=== PATIENT | female | born 1990 | race African-American/Black ===

== ENCOUNTER 2016-12-05 03:44 | Outpatient (CLI) | payer OTHER ==
[~2016-12-05] VITALS: Ht 170.2 cm; Wt 140.0 kg
[~2016-12-05 03:44] MED LIST: ACET325T33 PO; MAG355OR14 PO
[2016-12-05 04:14] VITALS: BMI 40.6
[2016-12-05] MEDS ORDERED: FERR325C PO (04:16)
[2016-12-05] MEDS ORDERED: PREN-93 PO (04:16)
[2016-12-05 04:20] VITALS: Ht 170.2 cm; Wt 140.0 kg
--- NOTE | 2016-12-05 20:53 | TRIAGE ---
OB Triage Datetime Report Generated by CPN: 12/05/2016 20:53 Datetime: 12/05/2016 04:21 Heart Rate Monitor Mode: External US Datetime: 12/05/2016 04:06 Stage of : OB Triage Assessment Type: Triage Maternal Assessment Blurred Vision: No Respiratory Effort: Unlabored; Regular Rhythm; Equal Expansion Facial Edema: None Fall Risk Assessment History of Falling: (0) No Secondary Diagnosis: (0) No Ambulatory Aid: (0) Bedrest/Nurse Assist IV Therapy: (0) No Gait: (0) Normal/Bedrest/Immobile Mental Status: (0) Oriented to Own Ability Fall Score: 0 Fall Risk Score Definition: No Risk: No action required Datetime: 12/05/2016 04:04 Time of Arrival: 12/05/2016 03:40 EGA: 39.2 Arrived By: Stretcher; Ambulance Arrived From: Home Chief Complaint: UC'S SINCE 129 Movement: Present Contractions: Regular Contractions: Q2MIN Rupture of Membranes: Unsure Vaginal Bleeding: None Vaginal Discharge: Denies Recent Sexual Intercouse: Denies Abdominal Trauma: Not Applicable Patient Complaints: Contractions Time Provider Notified: 12/05/2016 04:26 Provider Notified: TANNA Initial Plan: EFM, SVE,CALL OB Heart Rate Monitor Mode: External US Comments: CONTINUOUS MONITORING WITH LOSS OF CONTACT D/T CONSTANT MATERNAL MOVEMENT, SITTING UP AN D MORBID OBESITY Datetime: 12/05/2016 04:01 Stage of : OB Triage Vaginal Exam Dilatation (cms): 1.0 Effacement (%): 40 Station: -3 Exam By: CRESENCIO ELLSWORTH Membrane Status: Intact (Annotations: NO FLUID, SECRETIONS, DISCHARGE SEE AROUND OR INSIDE VAGINA. NO FLUID ON STERILE GLOVES POST EXAM) Vaginal Bleeding: None Cervix, Consistency: Moderate Cervix, Position: Posterior
--- NOTE | 2017-01-13 20:14 | QN ---
Documentation Comment diagnosis: rule out labor BRIGETTE CISSE MD Jan 13, 2017 20:14
== END 2016-12-05 04:27 | disposition home or self-care (01) ==
LOC: OBT 03:44 → L-D 03:45 → OBT 04:27
PROVIDERS: ATTEND Obstetrics & Gynecology
DX: O62.9 Abnormality of forces of labor, unspecified (principal); Z3A.39 39 weeks gestation of pregnancy
CPT/HCPCS: G0463

== ENCOUNTER 2017-03-04 13:54 | Emergency (ER) | payer OTHER ==
[~2017-03-04] VITALS: Wt 90.0 kg
[~2017-03-04 13:54] MED LIST changes: +FERR325C PO; +PREN-93 PO
--- NOTE | 2017-03-04 13:59 | QN ---
Documentation Comment Patient was seen immediately upon arrival the patient arrived by ambulance. The patient will be sent to triage for further vital signs will be seen by another provider. Medical screening exam was initiated. ADIN PAYNE MD Mar 04, 2017 13:59
[2017-03-04] MEDS ORDERED: ASPIRIN 325 MG TAB PO STA (14:31)
[2017-03-04] MEDS ORDERED: LIDOCAINE/MYLANTA 40 ML BTL PO STA (14:31)
[2017-03-04 15:04] LABS: EOSINOPHILS # 0.1 10^3/ul (0.0-0.5); EOSINOPHILS % 2.4 % (0.0-7.0); HEMATOCRIT 32.9 % (37.0-47.0); HEMOGLOBIN 11.1 g/dl (12.0-16.0); LYMPHOCYTES # 1.5 10^3/ul (0.8-2.9); LYMPHOCYTES % 29.5 % (15.0-51.0); MEAN CORPUSCULAR HEMOGLOBIN 28.2 pg (29.0-33.0); MEAN CORPUSCULAR HGB CONC 33.7 g/dl (32.0-37.0); MEAN CORPUSCULAR VOLUME 83.7 fl (82.0-101.0); MEAN PLATELET VOLUME 11.4 fl (7.4-10.4); MONOCYTE # 0.6 10^3/ul (0.3-0.9); NEUTROPHILS % 55.7 % (39.0-77.0); PLATELET COUNT 294 10^3/UL (140-415); RED BLOOD COUNT 3.93 10^6/ul (4.20-5.40); RED CELL DISTRIBUTION WIDTH 15.8 % (11.5-14.5); WHITE BLOOD COUNT 4.9 10^3/ul (4.8-10.8)
[2017-03-04 15:18] LABS: ANION GAP 12 (8-16); BLOOD UREA NITROGEN 8 mg/dl (7-20); CARBON DIOXIDE 26 mmol/L (21-31); CHLORIDE 107 mmol/L (97-110); CREATININE 0.57 mg/dl (0.44-1.00); GLUCOSE 91 mg/dl (70-220); POTASSIUM 3.4 mmol/L (3.5-5.1); SODIUM 142 mmol/L (135-144)
[2017-03-04 15:23] LABS: INR 0.96; PROTIME 12.8 Sec (12.2-14.2)
--- NOTE | 2017-03-04 15:23 | RADRPT ---
PROCEDURE: Chest x-ray CLINICAL INDICATION: Chest pain TECHNIQUE: Chest single view COMPARISON: None FINDINGS: There is mildly enlarged in size. The pulmonary vessels are normal in caliber. The lungs are clear . The costophrenic angles are sharp. The visualized bony thorax is unremarkable. IMPRESSION: No acute cardiopulmonary disease. Mild cardiomegaly RPTAT: HH .Angelo Kruger MD, Date Time Electronically viewed and signed by .Angelo Kruger MD, MD on 03/04/2017 15:22 .W/
[2017-03-04 15:24] LABS: PARTIAL THROMBOPLASTIN TIME 29.2 Sec (25.0-35.0)
[2017-03-04 15:32] LABS: TROPONIN-I < 0.012 ng/ml (0.00-0.12)
[2017-03-04] MEDS ORDERED: OMEP20CA16 PO (16:09)
--- NOTE | 2017-03-04 23:19 | ERD ---
ER Documentation Chief Complaint Date/Time DATE: 03/04/17 TIME: 23:15 Chief Complaint CHEST PAIN FOR SEVERAL DAYS, BIB AMBULANCE HPI This patient is a 26-year-old female presenting to the emergency department with complaints of chest pain ongoing for the past 2 days. Symptoms are worse today. She reports a burning sensation in her chest. There is radiation to her left neck and her left back. Symptoms are intermittent and they last for approximately 5 minutes when they occur. She has never had these symptoms in the past. She denies worsening of symptoms on exertion. She did mention that they awoke her from sleep last night though. The patient denies fevers, chills , nausea, vomiting, diarrhea, abdominal pain, or other symptoms. ROS All systems reviewed and are negative except as per history of present illness. Medications Home Meds Active Scripts Omeprazole* (Omeprazole*) 20 Mg Capsule.dr, 20 MG PO DAILY, #30 Prov:LISA MERAZ PA-C 03/04/17 Mag Hydrox/Al Hydrox/Simeth (Maalox Advanced Suspension) 355 Ml Oral.susp, 2 TSP PO TID for PAIN, #24 OZ Prov:BONNIE FERNANDO MD 06/07/16 Acetaminophen* (Tylenol*) 325 Mg Tablet, 2 TAB PO Q8 Y for PAIN, #30 TAB Prov:BONNIE FERNANDO MD 06/07/16 Reported Medications Ferrous Sulfate (Iron) 325 Mg Capsule.er, 325 MG PO, CAP 12/05/16 Vit No.124/Iron/FA ( Vitamin Tablet) 1 Each Tablet, 1 EACH PO, TAB 12/05/16 Allergies Allergies: Coded Allergies: ibuprofen (Unverified Allergy, Unknown, 12/05/16) PMhx/Soc History of Surgery: No Anesthesia Reaction: No Hx Neurological Disorder: No Hx Respiratory Disorders: No Hx Cardiac Disorders: No Hx Psychiatric Problems: No Hx Miscellaneous Medical Probl: No Hx Alcohol Use: No Hx Substance Use: No Hx Tobacco Use: No Smoking Status: Never smoker Physical Exam Vitals Vital Signs Date Time Temp Pulse Resp B/P Pulse Ox O2 Delivery O2 Flow Rate FiO2 03/04/17 16:16 Nasal Cannula 03/04/17 14:04 97.0 79 17 147/81 98 Physical Exam Const: Morbidly obese female in no acute distress. Head: Atraumatic Eyes: Normal Conjunctiva ENT: Normal External Ears, Nose and Mouth. Neck: Full range of motion..~ No meningismus. Resp: Clear to auscultation bilaterally Cardio: Regular rate and rhythm, no murmurs. There is mild left-sided chest wall tenderness on palpation. Abd: Obese, soft, non tender, non distended. Normal bowel sounds Skin: No petechiae or rashes Back: No midline or flank tenderness Ext: No cyanosis, or edema Neur: Awake and alert Psych: Normal Mood and Affect Result Diagram: 03/04/17 1411 03/04/17 1411 Results 24 hrs Laboratory Tests Test 03/04/17 14:11 White Blood Count 4.910^3/ul Red Blood Count 3.9310^6/ul Hemoglobin 11.1g/dl Hematocrit 32.9% Mean Corpuscular Volume 83.7fl Mean Corpuscular Hemoglobin 28.2pg Mean Corpuscular Hemoglobin Concent 33.7g/dl Red Cell Distribution Width 15.8% Platelet Count 39557^3/UL Mean Platelet Volume 11.4fl Neutrophils % 55.7% Lymphocytes % 29.5% Monocytes % 12.0% Eosinophils % 2.4% Basophils % 0.0% Nucleated Red Blood Cells % 0.0/100WBC Neutrophils # (Manual) 310^3/ul Lymphocytes # 1.510^3/ul Monocytes # 0.610^3/ul Eosinophils # 0.110^3/ul Basophils # 0.010^3/ul Nucleated Red Blood Cells # 0.010^3/ul Prothrombin Time 12.8Sec Prothrombin Time Ratio 1.0 INR International Normalized Ratio 0.96 Activated Partial Thromboplast Time 29.2Sec Sodium Level 142mmol/L Potassium Level 3.4mmol/L Chloride Level 107mmol/L Carbon Dioxide Level 26mmol/L Anion Gap 12 Blood Urea Nitrogen 8mg/dl Creatinine 0.57mg/dl Glucose Level 91mg/dl Calcium Level 9.0mg/dl Troponin I < 0.012ng/ml Current Medications Medications (Trade) Dose Ordered Sig/Savage Route PRN Reason Start Time Stop Time Status Last Admin Dose Admin Aspirin (Aspirin) 325 mg ONCE STAT PO 03/04/17 14:31 03/04/17 14:33 DC 03/04/17 14:41 Miscellaneous Medication (Gi Cocktail (2)) 40 ml ONCE STAT PO 03/04/17 14:31 03/04/17 14:33 DC 03/04/17 14:41 Procedures/MDM EMERGENCY DEPARTMENT COURSE / MEDICAL DECISION MAKING: This is a 26-year-old female who comes to the emergency room secondary to complaints of chest pain. The patient was given p.o. aspirin and p.o. GI cocktail in the department. On re -evaluation, the patient was feeling improved. Lab results reviewed. CBC: Slightly anemic at 11.1, which the patient can correct as an outpatient with [id number] ferrous sulfate. Chemistry: Slightly hypokalemic at 3.4, but does not require any supplementation at this time. Troponin: within normal limits. EKG: Interpreted by emergency department physician, Dr. Jase Stanford Rate/Rhythm: Normal sinus rhythm with a rate of 65 bpm. QRS, ST, T-waves: No changes consistent w/ acute ischemia Impression: No evidence of ischemia or arrhythmia Radiology: PROCEDURE: Chest x-ray CLINICAL INDICATION: Chest pain TECHNIQUE: Chest single view COMPARISON: None FINDINGS: There is mildly enlarged in size. The pulmonary vessels are normal in caliber. The lungs are clear. The costophrenic angles are sharp. The visualized bony thorax is unremarkable. IMPRESSION: No acute cardiopulmonary disease. Mild cardiomegaly RPTAT: HH .Angelo Kruger MD, MD Date Time Electronically viewed and signed by .Angelo Kruger MD, on 03/04/2017 15:22 The primary diagnosis is chest pain of unclear etiology. I have low suspicion for aortic dissection, acute coronary syndrome, pneumothorax, pulmonary embolism, sepsis, or other emergent conditions at this time. Discharge: I have discussed the lab results and diagnostic findings with the patient and answered any questions or concerns. The patient was discharged with a prescription for omeprazole. The patient was advised to followup with their PMD in 1-2 days and to return to the Emergency Department if there are any new or worsening symptoms. The patient understood and agreed with the diagnosis, treatment and plan. The patient is stable for discharge at this time. Departure Diagnosis: Primary Impression: Chest pain Condition: Fair Patient Instructions: Chest Pain, Uncertain Cause Additional Instructions: Follow up with your PCP within the next 1-3 days for a repeat evaluation. If you require a referral to a specialist, your Primary Care Provider may be able to provide this for you. In most patient cases, a referral is not required. If you have further questions regarding this matter, please ask your Primary Care Provider. Return the the emergency department immediately if symptoms worsen or change. If you have any questions regarding medications, ask your pharmacist or us before you leave. If any adverse reactions, occur while taking your medications, discontinue the treatment and return to the emergency department immediately. If any new or worsening symptoms, uncontrolled fevers, or other unexplained symptoms occur, return to the emergency department immediately. Take your medications as directed, and complete the entire course of treatment. LISA MERAZ PA-C Mar 04, 2017 23:19
== END 2017-03-04 16:17 | disposition home or self-care (01) ==
LOC: FTE 13:54
DX: R07.9 Chest pain, unspecified (principal)
CPT/HCPCS: 36415; 71010; 80048; 84484; 85025; 85610; 85730; Z7502; Z7610; 93005

== ENCOUNTER 2018-08-02 15:25 | Emergency (ER) | payer OTHER ==
[~2018-08-02] VITALS: Wt 93.8 kg
[~2018-08-02 15:25] MED LIST changes: +OMEP20CA16 PO
[2018-08-02] MEDS ORDERED: ALBUTEROL 0.083% (NEB) 2.5 MG/3 ML AMP HHN STA (17:09)
[2018-08-02] MEDS ORDERED: IPRATROPIUM (NEB) 0.5 MG/2.5 ML AMP HHN ONE (17:30)
--- NOTE | 2018-08-02 17:45 | ERD ---
ER Documentation Chief Complaint Chief Complaint bib self, cc: sob x 3 days, hx of asthma, seen at [facility] HPI 28-year-old female, with history of asthma, presents to the emergency department, complaining of persistent cough and chest congestion during the last 3 days. The patient was seen yesterday at [facility] where she got a prescription for steroids, antibiotics and inhalers. She denies fevers, no chills. Started that she has not been able to get the medication and is requesting a breathing treatment. ROS All systems reviewed and are negative except as per history of present illness. Medications Home Meds Active Scripts Albuterol Sulfate* (Proair HFA*) 8.5 Gm Hfa.aer.ad, 2 PUFF INH Q4H PRN for WHEEZING AND SOB, #1 INHALER Prov:ENOC ARMANDO MD 08/02/18 Omeprazole* (Omeprazole*) 20 Mg Capsule.dr, 20 MG PO DAILY, #30 Prov:LISA MERAZ PA-C 03/04/17 Mag Hydrox/Al Hydrox/Simeth (Maalox Advanced Suspension) 355 Ml Oral.susp, 2 TSP PO TID for PAIN, #24 OZ Prov:BONNIE FERNANDO MD 06/07/16 Acetaminophen* (Tylenol*) 325 Mg Tablet, 2 TAB PO Q8 PRN for PAIN, #30 TAB Prov:BONNIE FERNANDO MD 06/07/16 Reported Medications Ferrous Sulfate (Iron) 325 Mg Capsule.er, 325 MG PO, CAP 12/05/16 Vit No.124/Iron/FA ( Vitamin Tablet) 1 Each Tablet, 1 EACH PO, TAB 12/05/16 Allergies Allergies: Coded Allergies: ibuprofen (Unverified Allergy, Unknown, 12/05/16) PMhx/Soc History of Surgery: No Anesthesia Reaction: No Hx Neurological Disorder: No Hx Respiratory Disorders: Yes (Bronchitis, Asthma) Hx Cardiac Disorders: No Hx Psychiatric Problems: No Hx Miscellaneous Medical Probl: No Hx Alcohol Use: No Hx Substance Use: No Hx Tobacco Use: No Smoking Status: Never smoker FmHx Family History: No diabetes, No coronary disease Physical Exam Vitals Physical Exam Const: No acute distress Head: Atraumatic Eyes: Normal Conjunctiva ENT: Normal External Ears, Nose and Mouth. Neck: Full range of motion. No meningismus. Resp: Mild bilateral rhonchi without wheezing to auscultation bilaterally Cardio: Regular rate and rhythm, no murmurs Abd: Soft, non tender, non distended. Normal bowel sounds Skin: No petechiae or rashes Back: No midline or flank tenderness Ext: No cyanosis, or edema Neur: Awake and alert Psych: Normal Mood and Affect Results 24 hrs Current Medications Medications Dose Sig/Savage Start Time Status Last (Trade) Ordered Route PRN Stop Time Admin Dose Reason Admin Albuterol 5 mg ONCE STAT 08/02/18 DC 08/02/18 (Proventil HHN 17:09 18:01 0.083% (Neb)) 08/02/18 17:12 Ipratropium 0.5 mg ONCE ONCE 08/02/18 DC 08/02/18 [place] [facility] 17:30 18:01 (Atrovent 08/02/18 17:31 0.02% (Neb)) EKG read by me: Rate/Rhythm: Sinus bradycardia at a rate of 49 Intervals: Normal No acute ST changes. No T wave inversion Impression: No evidence of acute ischemia or arrhythmia Procedures/MDM Differential diagnosis include but not limited to: Respiratory infection bacterial/viral/fungal. Asthma/COPD, pneumonitis, allergies, GERD. Less likely foreign body aspiration, cardiac related, aspiration pneumonia, malignancy. Physical examination and clinical presentation consistent most likely with upper respiratory infection and asthma patient During the ED course the patient remained stable, received a nebulized treatment in the ED presenting overall improvement of the symptoms, no new compl aints. Clinical impression discussed with the patient who agrees with management. The patient is stable to be treated outpatient and will be discharged home. Some side effects of prescribed medications (headache, rash, nausea, vomiting, diarrhea, drowsiness, habituation, bleeding, hypertension, interactions with other medications) were reviewed. The patient was instructed to follow up with the primary care provider in the next 48h. If symptoms persist, worsen or new symptoms develop, then patient should return to the ED immediately. Disclaimer: Inadvertent spelling and grammatical errors are likely due to EHR/dictation software use and do not reflect on the overall quality of patient care. Also, please note that the electronic time recorded on this note does not necessarily reflect the actual time of the patient encounter. Departure Diagnosis: Primary Impression: Cough Condition: Stable Additional Instructions: Thank you very much for allowing us to participate in your care. Your health and safety is our top priority at [facility]. Call your primary care doctor TOMORROW for an appointment during the next 2-4 days and bring all the information and medications prescribed. Have prescriptions filled and follow precisely the directions on the label. If the symptoms get worse and your provider is unavailable, return to the Emergency Department immediately. ENOC ARMANDO MD Aug 02, 2018 17:45
[2018-08-02] MEDS ORDERED: ALBU8.5H8 INH (18:27)
[2018-08-02 18:47] VITALS: BP 130/84; PULSE 74; RESP 18
== END 2018-08-02 18:47 | disposition home or self-care (01) ==
LOC: FTE 15:25
DX: R05 Cough (principal); J45.909 Unspecified asthma, uncomplicated
CPT/HCPCS: 71046; 93005; 94664; Z7502; Z7610

== ENCOUNTER 2018-08-31 10:25 | Emergency (ER) | payer OTHER ==
[~2018-08-31] VITALS: Ht 177.8 cm; Wt 94.8 kg
[~2018-08-31 10:25] MED LIST changes: +ALBU8.5H8 INH
[2018-08-31 10:27] VITALS: BP 161/104; PULSE 73; RESP 19; Ht 177.8 cm; Wt 94.8 kg
[2018-08-31] MEDS ORDERED: FLUCONAZOLE 150 MG TAB PO ONE (11:30)
--- NOTE | 2018-08-31 18:26 | ERD ---
ER Documentation Chief Complaint Chief Complaint HEADACHE AND ABDOMINAL PAIN- HX OF MIGRAINE AND GASTRITIS HPI 28-year-old female patient with a past medical history of sickle cell anemia, asthma presents to the ED complaining of a rash on her scalp, face that has been going for years. States that she also obtain yeast infection. States that she feels like it is from taking ranitidine. Denies any fever, chills, nausea, vomiting, abdominal pain, chest pain, shortness of breath, body aches. Patient reports that she recently obtained blood work, has a follow-up appointment with a tram operator on September 2018. ROS All systems reviewed and are negative except as per history of present illness. Medications Home Meds Active Scripts Guaifenesin/Pseudoephedrne HCl (Mucinex D ER 1,200-120 mg Tab) 1 Each Tab.er.12h, 1 EACH PO QPM PRN for congestion, #7 TAB Prov:BRIONNA LIU DO 09/04/18 Prednisone* (Prednisone*) 20 Mg Tab, 60 MG PO DAILY for 4 Days, TAB Prov:BRIONNA LIU DO 09/04/18 Albuterol Sulfate* (Proair HFA*) 8.5 Gm Hfa.aer.ad, 2 PUFF INH Q4, #1 INHALER Prov:BRIONNA LIU DO 09/04/18 Azithromycin* (Zithromax*) 250 Mg Tablet, 250 MG PO .ZPACK DIRECTED, #6 TAB TAKE 500 MG (2 TABS) THE FIRST DAY THEN 250 MG (1 TAB) DAYS 2-5 Prov:BRIONNA LIU DO 09/04/18 Nystatin-Triamcinolone* (Nystatin-Triamcinolone* Cream) 15 Gm Cream.gm., 1 APPLIC TOP BID for 7 Days, #1 TUB Prov:ENOC ARMANDO MD 09/02/18 Triamcinolone Acetonide (Triamcinolone Acetonide) 0.5% - 15 Gm Oint..gm., 1 APPLIC TOP BID for 10 Days, #2 TUB Prov:ENOC ARMANDO MD 09/02/18 Prednisone* (Prednisone*) 20 Mg Tab, 60 MG PO DAILY for 5 Days, TAB Prov:ENOC ARMANDO MD 09/02/18 Albuterol Sulfate* (Proair HFA*) 8.5 Gm Hfa.aer.ad, 2 PUFF INH Q4H PRN for WHEEZING AND SOB, #1 INHALER Prov:ENOC ARMANDO MD 08/02/18 Reported Medications Ranitidine Hcl* (Ranitidine Hcl*) 150 Mg Tablet, 150 MG PO Q12, #60 TAB 09/04/18 Acetaminophen* (Tylophen*) 500 Mg Capsule, 500 MG PO Q6H PRN for PAIN LEVEL 4-6, TAB 09/04/18 Ergocalciferol (Vitamin D2) (VITAMIN D2) 50,000 Unit Capsule, 16397 UNIT PO weekly, CAP 09/04/18 Clindamycin Phosphate (Clindagel) 40 Ml Gel..ml., 40 ML TP BID 09/04/18 Beclomethasone Dipropionate (Qvar Redihaler (40 MCG)) 10.6 Gm Hfa.aeroba, 10.6 GM IH BID, INH 09/04/18 Loratadine* (Claritin*) 10 Mg Capsule, 10 MG PO DAILY, CAP 09/04/18 Discontinued Reported Medications Ferrous Sulfate (Iron) 325 Mg Capsule.er, 325 MG PO, CAP 12/05/16 Vit No.124/Iron/FA ( Vitamin Tablet) 1 Each Tablet, 1 EACH PO, TAB 12/05/16 Discontinued Scripts Fluconazole* (Diflucan*) 150 Mg Tablet, 150 MG PO ONCE, #1 TAB Prov:ENOC ARMANDO MD 09/02/18 Hydrocodone/Acetaminophen ([place] 5-325 Tablet) 1 Each Tablet, 1 TAB PO QHS PRN for PAIN, #7 TAB Prov:ENOC ARMANDO MD 09/02/18 Omeprazole* (Omeprazole*) 20 Mg Capsule.dr, 20 MG PO DAILY, #30 Prov:LISA MERAZ PA-C 03/04/17 Mag Hydrox/Al Hydrox/Simeth (Maalox Advanced Suspension) 355 Ml Oral.susp, 2 TSP PO TID for PAIN, #24 OZ Prov:BONNIE FERNANDO MD 06/07/16 Acetaminophen* (Tylenol*) 325 Mg Tablet, 2 TAB PO Q8 PRN for PAIN, #30 TAB Prov:BONNIE FERNANDO MD 06/07/16 Allergies Allergies: Coded Allergies: amoxicillin (Verified Allergy, Unknown, 09/04/18) ibuprofen (Unverified Allergy, Unknown, 09/04/18) PMhx/Soc Medical and Surgical Hx: pt denies Medical Hx, pt denies Surgical Hx History of Surgery: No Anesthesia Reaction: No Hx Neurological Disorder: No Hx Respiratory Disorders: Yes (Bronchitis, Asthma) Hx Cardiac Disorders: No Hx Psychiatric Problems: No Hx Miscellaneous Medical Probl: No Hx Alcohol Use: No Hx Substance Use: No Hx Tobacco Use: No FmHx Family History: No diabetes, No coronary disease Physical Exam Vitals Vital Signs Date Temp Pulse Resp B/P (MAP) Pulse Ox O2 O2 Flow FiO2 Time Delivery Rate 08/31/18 98.8 73 19 161/104 100 10:27 (123) Physical Exam Const: Bro-exd-sbivrneix, well-nourished. In no acute distress. Head: Atraumatic, normocephalic. Vitiligo-like lesion, 6 x 3 cm in size of the left scalp. Eyes: Normal Conjunctiva without injection. No purulent discharge. PERRL. EOMI ENT: Normal external ear. Ear canal without erythema. Tympanic membrane pearly martines without effusion or bulging. Nasal canal clear with normal turbinates. Moist oropharynx without tonsillar exudates. Non-erythematous pharynx. Uvula midline. No drooling. No trismus. Neck: Full range of motion. No meningismus. No cervical lymphadenopathy. Resp: Clear to auscultation bilaterally. No wheezing, rhonchi, rales, or crackles. No accessory muscle use. No retractions. Cardio: Regular rate and rhythm. No murmurs, rubs or gallops. Abd: Soft, non tender, non distended. Normal bowel sounds. No palpable masses. No rebound tenderness. No guarding. Skin: No petechiae or rashes Back: No midline tenderness. No CVA tenderness. Ext: No cyanosis, or edema. Neur: Awake and alert. Psych: Normal Mood and Affect Results 24 hrs Current Medications Medications Dose Sig/Savage Start Time Status Last (Trade) Ordered Route PRN Stop Time Admin Dose Reason Admin Fluconazole 150 mg ONCE ONCE 08/31/18 DC 08/31/18 (Diflucan) PO 11:30 11:35 08/31/18 11:31 Procedures/MDM 28-year-old female patient with no significant past medical history presents to ED complaining of a rash on her head. Patient is afebrile and nontoxic- appearing. Patient reports that she feels like she has a yeast infection, with just like the pill, to be treated. Deferred pelvic exam. Patient vitiligo-like rash should be biopsied. Patient should follow-up with her tram operator. Patient should also obtain care for her sickle cell. Low suspicion for sickle cell crisis at this time. Low suspicion for acute myocardial infarction, pneumothorax, pericarditis, myocarditis, endocarditis, pneumonia, cardiac tamponade, pulmonary embolism, pleural effusion, AAA, aortic dissection, Boerhaave's syndrome, cardiac dysrhythmias,meningitis, intracranial bleed, seizure, stroke, TIA or other emergent conditions. Low suspicion for anaphylaxis, PID, ovarian torsion, scabies, SJS/TEN, TSS, Lyme's Disease, syphil is, RMSF, shingles, disseminated gonorrhea chlamydia, DIC, TTP, ITP, erythema multiforme, sepsis, cellulitis, necrotizing fasciitis, gangrene, meningococcemia, allergic contact dermatitis, urticaria, eczema, tinea infection, or other emergent conditions. Discussed with Dr. Kaufman who agreed with the management and discharge plan. Diagnosis: Yeast Infection Follow up with primary care physician in 1-2 days. Instructed patient to return to the ED sooner for any worsening symptoms. Patient's questions were answered. Patient is hemodynamically stable. Patient understood and agreed with discharge plan. Patient discharged stable. Disclaimer: Inadvertent spelling and grammatical errors are likely due to EHR/dictation software use and do not reflect on the overall quality of patient care. Also, please note that the electronic time recorded on this note does not necessarily reflect the actual time of the patient encounter. Departure Diagnosis: Primary Impression: Yeast infection Condition: Stable Patient Instructions: Self-Care for Skin Rashes, Vaginal Infection: Yeast (Candidiasis) Referrals: COMMUNITY CLINICS YOU HAVE RECEIVED A MEDICAL SCREENING EXAM AND THE RESULTS INDICATE THAT YOU DO NOT HAVE A CONDITION THAT REQUIRES URGENT TREATMENT IN THE EMERGENCY DEPARTMENT. FURTHER EVALUATION AND TREATMENT OF YOUR CONDITION CAN WAIT UNTIL YOU ARE SEEN IN YOUR DOCTORS OFFICE WITHIN THE NEXT 1-2 DAYS. IT IS YOUR RESPONSIBILITY TO MAKE AN APPOINTMENT FOR FOLOW-UP CARE. IF YOU HAVE A PRIMARY DOCTOR --you should call your primary doctor and schedule an appointment IF YOU DO NOT HAVE A PRIMARY DOCTOR YOU CAN CALL OUR PHYSICIAN REFERRAL HOTLINE AT IF YOU CAN NOT AFFORD TO SEE A PHYSICIAN YOU CAN CHOSE FROM THE FOLLOWING [facility] CLINICS [facility] [address] [facility]. [facility] [address] [facility]. [facility] [address] [facility] [address] [facility]. [facility] [address] [facility]. [facility] [address] [facility]. [facility] YOU HAVE RECEIVED A MEDICAL SCREENING EXAM AND THE RESULTS INDICATE THAT YOU DO NOT HAVE A CONDITION THAT REQUIRES URGENT TREATMENT IN THE EMERGENCY DEPARTMENT. FURTHER EVALUATION AND TREATMENT OF YOUR CONDITION CAN WAIT UNTIL YOU ARE SEEN IN YOUR DOCTORS OFFICE WITHIN THE NEXT 1-2 DAYS. IT IS YOUR RESPONSIBILITY TO MAKE AN APPOINTMENT FOR FOLOW-UP CARE. IF YOU HAVE A PRIMARY DOCTOR --you should call your primary doctor and schedule and appointment IF YOU DO NOT HAVE A PRIMARY DOCTOR YOU CAN CALL OUR PHYSICIAN REFERRAL HOTLINE AT . IF YOU CAN NOT AFFORD TO SEE A PHYSICIAN YOU CAN CHOSE FROM THE FOLLOWING [facility]: [facility] [address] [place] [address] [facility] [address] [place] [address] [facility] [address] [place] [address] [facility] ADMINISTRATOR [place] [address] [facility] [address] [place] [address] OFFICE FAX SAMANTHA JULIO [address] [place] [address] [address]UTTON BUCKLEY [address] [place], [place] [id number] DR MARIN, HESHMAT [address] [facility], [address] [address] DR JENKINS, YISEL [address] [place] [address] [facility] [address] [place] [address] [address] [facility], [facility] [address] - [address] FLANNERY, MECHELLE [address], [facility] [address] [address] PENA, STACY [address] [facility]. [address], [place] [address] DR MTZ, [facility] [address] [place], [place] [id number] [facility] Hours: Mon-Fri 9:00 AM - 5:00 PM Additional Instructions: You have been treated for your yeast infection in the ED. Call your primary care doctor TOMORROW for an appointment during the next 2-3 days for a referral to see a tram operator and management of sickle cell disease. See the doctor sooner or return here if your condition worsens before your appointment time. DEON TAO PA-C Aug 31, 2018 18:26
== END 2018-08-31 12:11 | disposition home or self-care (01) ==
LOC: FTE 10:25
DX: B37.9 Candidiasis, unspecified (principal); J45.909 Unspecified asthma, uncomplicated
CPT/HCPCS: Z7502; Z7610; 99283

== ENCOUNTER 2018-09-02 09:51 | Emergency (ER) | payer OTHER ==
[~2018-09-02] VITALS: Ht 170.2 cm; Wt 93.8 kg
[2018-09-02 09:56] VITALS: BP 143/96; PULSE 68; RESP 18; Ht 170.2 cm; Wt 93.8 kg
--- NOTE | 2018-09-02 10:59 | ERD ---
ER Documentation Chief Complaint Chief Complaint for recheck on rash on face , also c/o genital discahrge HPI 20-year-old female, presents to the emergency department, complaining of persis tent yeast infection for 1 week after taking antibiotics. The patient is also requesting medication for a flareup of her skin rash and left knee pain. 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 Otherwise, she denies fevers, no chills, no systemic symptoms. ROS All systems reviewed and are negative except as per history of present illness. Medications Home Meds Active Scripts Nystatin-Triamcinolone* (Nystatin-Triamcinolone* Cream) 15 Gm Cream.gm., 1 APPLIC TOP BID for 7 Days, #1 TUB Prov:ENOC ARMANDO MD 09/02/18 Fluconazole* (Diflucan*) 150 Mg Tablet, 150 MG PO ONCE, #1 TAB Prov:ENOC ARMANDO MD 09/02/18 Hydrocodone/Acetaminophen ([place] 5-325 Tablet) 1 Each Tablet, 1 TAB PO QHS PRN for PAIN, #7 TAB Prov:ENOC ARMANDO MD 09/02/18 Triamcinolone Acetonide (Triamcinolone Acetonide) 0.5% - 15 Gm Oint..gm., 1 APPLIC TOP BID for 10 Days, #2 TUB Prov:ENOC ARMANDO MD 09/02/18 Prednisone* (Prednisone*) 20 Mg Tab, 60 MG PO DAILY for 5 Days, TAB Prov:ENOC ARMANDO MD 09/02/18 Albuterol Sulfate* (Proair HFA*) 8.5 Gm Hfa.aer.ad, 2 PUFF INH Q4H PRN for WHEEZING AND SOB, #1 INHALER Prov:ENOC ARMANDO MD 08/02/18 Omeprazole* (Omeprazole*) 20 Mg Capsule.dr, 20 MG PO DAILY, #30 Prov:LISA MERAZ PA-C 03/04/17 Mag Hydrox/Al Hydrox/Simeth (Maalox Advanced Suspension) 355 Ml Oral.susp, 2 TSP PO TID for PAIN, #24 OZ Prov:BONNIE FERNANDO MD 06/07/16 Acetaminophen* (Tylenol*) 325 Mg Tablet, 2 TAB PO Q8 PRN for PAIN, #30 TAB Prov:BONNIE FERNANDO MD 06/07/16 Reported Medications Ferrous Sulfate (Iron) 325 Mg Capsule.er, 325 MG PO, CAP 12/05/16 Vit No.124/Iron/FA ( Vitamin Tablet) 1 Each Tablet, 1 EACH PO, TAB 12/05/16 Allergies Allergies: Coded Allergies: amoxicillin (Verified Allergy, Unknown, 08/31/18) ibuprofen (Unverified Allergy, Unknown, 12/05/16) PMhx/Soc History of Surgery: No Anesthesia Reaction: No Hx Neurological Disorder: No Hx Respiratory Disorders: Yes (Bronchitis, Asthma) Hx Cardiac Disorders: No Hx Psychiatric Problems: No Hx Miscellaneous Medical Probl: No Hx Alcohol Use: No Hx Substance Use: No Hx Tobacco Use: No Smoking Status: Never smoker Physical Exam Vitals Vital Signs Date Temp Pulse Resp B/P (MAP) Pulse Ox O2 O2 Flow FiO2 Time Delivery Rate 09/02/18 98.1 68 18 143/96 99 09:56 (112) Physical Exam Const: No acute distress Head: Multiple hyperpigmented plaques involving the mother area and the scalp with significant scarring tissue. No evidence of superimposed infection. Eyes: Normal Conjunctiva ENT: Normal External Ears, Nose and Mouth. Neck: Full range of motion. No meningismus. Resp: Clear to auscultation bilaterally Cardio: Regular rate and rhythm, no murmurs Abd: Soft, non tender, non distended. Normal bowel sounds Skin: No petechiae or rashes Back: No midline or flank tenderness Ext: No cyanosis, or edema Neur: Awake and alert Psych: Normal Mood and Affect Procedures/MDM Vital signs stable. Differential diagnosis considered include osteoarthritis, rheumatoid arthritis, reactive arthritis, lupus, thyroid disease. Low suspicion for septic arthritis. During the ED course the patient remained stable, no new complaints. Results and clinical impression discussed with the patient who agrees with management. The patient is stable to be treated outpatient and will be discharged home. some side effects of prescribed medications (headache, rash, nausea, vomiting, diarrhea, drowsiness, habituation, bleeding, hypertension, interactions with other medications) were reviewed. Follow up with the primary care provider in the next 48h has been recommended. If symptoms persist, worsen or new symptoms develop, then patient should return to the ED immediately. Instructions explained and given directly by me to the patient with a cknowledgment and demonstrated understanding. Disclaimer: Inadvertent spelling and grammatical errors are likely due to EHR/dictation software use and do not reflect on the overall quality of patient care. Also, please note that the electronic time recorded on this note does not necessarily reflect the actual time of the patient encounter. Departure Diagnosis: Primary Impression: Yeast infection Additional Impressions: Discoid lupus Left knee pain Condition: Stable Additional Instructions: Thank you very much for allowing us to participate in your care. Your health and safety is our top priority at [facility]. Call your primary care doctor TOMORROW for an appointment during the next 2-4 days and bring all the information and medications prescribed. Have prescriptions filled and follow precisely the directions on the label. If the symptoms get worse and your provider is unavailable, return to the Emergency Department immediately. ENOC ARMANDO MD Sep 02, 2018 10:59
[2018-09-02] MEDS ORDERED: TRIA15OI9 TOP (11:01)
[2018-09-02] MEDS ORDERED: FLUC150T PO (11:01)
[2018-09-02] MEDS ORDERED: PRED20TA PO (11:01)
[2018-09-02] MEDS ORDERED: NYST15CR36 TOP (11:01)
[2018-09-02] MEDS ORDERED: HYDR-4011 PO (11:01)
== END 2018-09-02 11:12 | disposition home or self-care (01) ==
LOC: FTE 09:51
DX: B37.9 Candidiasis, unspecified (principal); L93.0 Discoid lupus erythematosus; M25.562 Pain in left knee; J45.909 Unspecified asthma, uncomplicated
CPT/HCPCS: 99283

== ENCOUNTER 2018-09-04 08:45 | Emergency (ER) | payer OTHER ==
[~2018-09-04] VITALS: Ht 165.1 cm; Wt 93.6 kg
[~2018-09-04 08:45] MED LIST changes: +FLUC150T PO; +HYDR-4011 PO; +NYST15CR36 TOP; +PRED20TA PO; +TRIA15OI9 TOP
[2018-09-04 09:05] VITALS: Ht 165.1 cm; Wt 93.6 kg
[2018-09-04] MEDS ORDERED: METHYLPREDNISOLONE 125 MG INJ IM STA (09:28)
[2018-09-04] MEDS ORDERED: ALBUTEROL 0.083% (NEB) 2.5 MG/3 ML AMP NEB STA (09:28)
[2018-09-04] MEDS ORDERED: LORA10CA PO (09:31)
[2018-09-04] MEDS ORDERED: BECL10.6 IH (09:31)
[2018-09-04] MEDS ORDERED: CLIN40GE TP (09:32)
[2018-09-04] MEDS ORDERED: ERGO500013 PO (09:34)
[2018-09-04] MEDS ORDERED: RANI150T5 PO (09:35)
[2018-09-04] MEDS ORDERED: ACET500C5 PO (09:35)
[2018-09-04] MEDS ORDERED: PRED20TA PO (10:54)
[2018-09-04] MEDS ORDERED: GUAI-106 PO (10:54)
[2018-09-04] MEDS ORDERED: AZIT250T PO (10:54)
[2018-09-04] MEDS ORDERED: ALBU8.5H8 INH (10:54)
--- NOTE | 2018-09-04 11:01 | ERD ---
ER Documentation Chief Complaint Chief Complaint pt came from home for sob and chronic ap 04/26 HPI This is a 28-year-old female who is here for left ear pain and asthma exacerbation. The patient says that she has sickle cell trait and asthma and may have an autoimmune condition but she is not sure. She expresses her frustration with the medical system not being able to diagnose her. She has had pain in her right ear for 1 week now with drainage down the right throat. No fever no cough no sore throat no headache chest pain shortness of breath no abdominal pain no GI symptoms. She says she an asthma exacerbation this morning and was given a nebulizer treatment by EMS which helped a great deal. She says she is breathing fine now but is requesting another one. ROS All systems reviewed and are negative except as per history of present illness. Medications Home Meds Active Scripts Guaifenesin/Pseudoephedrne HCl (Mucinex D ER 1,200-120 mg Tab) 1 Each Tab.er.12h, 1 EACH PO QPM PRN for congestion, #7 TAB Prov:BRIONNA LIU DO 09/04/18 Prednisone* (Prednisone*) 20 Mg Tab, 60 MG PO DAILY for 4 Days, TAB Prov:BRIONNA LIU DO 09/04/18 Albuterol Sulfate* (Proair HFA*) 8.5 Gm Hfa.aer.ad, 2 PUFF INH Q4, #1 INHALER Prov:BRIONNA LIU DO 09/04/18 Azithromycin* (Zithromax*) 250 Mg Tablet, 250 MG PO .SvetlanaPACK DIRECTED, #6 TAB TAKE 500 MG (2 TABS) THE FIRST DAY THEN 250 MG (1 TAB) DAYS 2-5 Prov:BRIONNA LIU DO 09/04/18 Nystatin-Triamcinolone* (Nystatin-Triamcinolone* Cream) 15 Gm Cream.gm., 1 APPLIC TOP BID for 7 Days, #1 TUB Prov:ENOC ARMANDO MD 09/02/18 Triamcinolone Acetonide (Triamcinolone Acetonide) 0.5% - 15 Gm Oint..gm., 1 APPLIC TOP BID for 10 Days, #2 TUB Prov:ENOC ARMANDO MD 09/02/18 Prednisone* (Prednisone*) 20 Mg Tab, 60 MG PO DAILY for 5 Days, TAB Prov:ENOC ARMANDO MD 09/02/18 Albuterol Sulfate* (Proair HFA*) 8.5 Gm Hfa.aer.ad, 2 PUFF INH Q4H PRN for WHEEZING AND SOB, #1 INHALER Prov:ENOC ARMANDO MD 08/02/18 Reported Medications Ranitidine Hcl* (Ranitidine Hcl*) 150 Mg Tablet, 150 MG PO Q12, #60 TAB 09/04/18 Acetaminophen* (Tylophen*) 500 Mg Capsule, 500 MG PO Q6H PRN for PAIN LEVEL 4-6, TAB 09/04/18 Ergocalciferol (Vitamin D2) (VITAMIN D2) 50,000 Unit Capsule, 58854 UNIT PO weekly, CAP 09/04/18 Clindamycin Phosphate (Clindagel) 40 Ml Gel..ml., 40 ML TP BID 09/04/18 Beclomethasone Dipropionate (Qvar Redihaler (40 MCG)) 10.6 Gm Hfa.aeroba, 10.6 GM IH BID, INH 09/04/18 Loratadine* (Claritin*) 10 Mg Capsule, 10 MG PO DAILY, CAP 09/04/18 Discontinued Reported Medications Ferrous Sulfate (Iron) 325 Mg Capsule.er, 325 MG PO, CAP 12/05/16 Vit No.124/Iron/FA ( Vitamin Tablet) 1 Each Tablet, 1 EACH PO, TAB 12/05/16 Discontinued Scripts Fluconazole* (Diflucan*) 150 Mg Tablet, 150 MG PO ONCE, #1 TAB Prov:ENOC ARMANDO MD 09/02/18 Hydrocodone/Acetaminophen ([place] 5-325 Tablet) 1 Each Tablet, 1 TAB PO QHS PRN for PAIN, #7 TAB Prov:ENOC ARMANDO MD 09/02/18 Omeprazole* (Omeprazole*) 20 Mg Capsule.dr, 20 MG PO DAILY, #30 Prov:LISA MERAZ PA-C 03/04/17 Mag Hydrox/Al Hydrox/Simeth (Maalox Advanced Suspension) 355 Ml Oral.susp, 2 TSP PO TID for PAIN, #24 OZ Prov:BONNIE FERNANDO MD 06/07/16 Acetaminophen* (Tylenol*) 325 Mg Tablet, 2 TAB PO Q8 PRN for PAIN, #30 TAB Prov:BONNIE FERNANDO MD 06/07/16 Allergies Allergies: Coded Allergies: amoxicillin (Verified Allergy, Unknown, 09/04/18) ibuprofen (Unverified Allergy, Unknown, 09/04/18) PMhx/Soc History of Surgery: Yes ( x2) Anesthesia Reaction: No Hx Neurological Disorder: No Hx Respiratory Disorders: Yes (Bronchitis, Asthma) Hx Cardiac Disorders: No Hx Psychiatric Problems: No Hx Miscellaneous Medical Probl: No Hx Alcohol Use: No Hx Substance Use: No Hx Tobacco Use: Yes Smoking Status: Current every day smoker FmHx Family History: No coronary disease Physical Exam Vitals Vital Signs Date Temp Pulse Resp B/P (MAP) Pulse Ox O2 O2 Flow FiO2 Time Delivery Rate 09/04/18 88 17 150/88 100 Room Air 10:18 (108) 09/04/18 87 20 95 21 09:50 09/04/18 60 20 135/72 100 Nasal 2.0 09:11 (93) Cannula 09/04/18 Nasal 2.0 09:09 Cannula 09/04/18 98.6 83 23 132/84 92 09:05 (100) Physical Exam Const: Well-developed, well-nourished Head: Atraumatic, normocephalic Eyes: Normal Conjunctiva, PERRLA, EOMI, normal sclera, no nystagmus ENT: Normal External Ears, there is suppurative otitis media on the right tympanic membrane without perforation nose and Mouth, moist mucus membranes. Neck: Full range of motion. No meningismus, no lymphadenopathy. Resp: Clear to auscultation bilaterally, no wheezing, rhonchi, rales Cardio: Regular rate and rhythm, no murmurs, S1 S2 present Abd: Soft, non tender x 4, non distended. Normal bowel sounds, no guarding or rebound, no pulsitile abdominal masses or bruits Skin: No petechiae or rashes, no ecchymosis , no maculopapular rash Back: No midline or flank tenderness Ext: No cyanosis, or edema, FROM x 4, normal inspection, neurovascularly intact x 4 Neur: Awake and alert, STR 5/5 x 4, sensation intact x 4, no focal findings, cerebellum intact Psych: Normal Mood and Affect Result Diagram: 09/04/18 0945 09/04/1845 Results 24 hrs Laboratory Tests Test 09/04/18 09:45 White Blood Count 2.1 10^3/ul Red Blood Count 3.69 10^6/ul Hemoglobin 10.5 g/dl Hematocrit 31.3 % Mean Corpuscular Volume 84.8 fl Mean Corpuscular Hemoglobin 28.5 pg Mean Corpuscular Hemoglobin Concent 33.5 g/dl Red Cell Distribution Width 17.2 % Platelet Count 190 10^3/UL Mean Platelet Volume 10.8 fl Immature Granulocytes % 0.000 % Neutrophils % % Lymphocytes % % Monocytes % % Eosinophils % % Basophils % % Nucleated Red Blood Cells % 0.0 /100WBC Immature Granulocytes # 0.000 10^3/ul Neutrophils # 10^3/ul Lymphocytes # 10^3/ul Monocytes # 10^3/ul Eosinophils # 10^3/ul Basophils # 10^3/ul Nucleated Red Blood Cells # 10^3/ul Sodium Level 143 mmol/L Potassium Level 3.5 mmol/L Chloride Level 106 mmol/L Carbon Dioxide Level 21 mmol/L Anion Gap 16 Blood Urea Nitrogen 10 mg/dl Creatinine 0.53 mg/dl Est Glomerular Filtrat Rate mL/min > 60 mL/min Glucose Level 82 mg/dl Calcium Level 9.0 mg/dl Current Medications Medications Dose Sig/Savage Start Time Status Last (Trade) Ordered Route PRN Stop Time Admin Dose Reason Admin Albuterol 7.5 mg ONCE STAT 09/04/18 DC 09/04/18 (Proventil NEB 09:28 09:49 0.083% (Neb)) 09/04/18 09:30 125 mg ONCE STAT 09/04/18 DC 09/04/18 Methylprednis IM 09:28 09:34 olone Sodium 09/04/18 09:30 Succinate (Solu-Medrol) Procedures/MDM PROCEDURE: Single view chest. CLINICAL INDICATION: Asthma exacerbation TECHNIQUE: Single view of the chest was obtained COMPARISON: None FINDINGS: There is no airspace consolidation or focal infiltrate. No pleural effusion or pneumothorax. Cardiac silhouette and mediastinal contours are unremarkable. Pulmonary vasculature appears normal. Regional bones are grossly unremarkable. IMPRESSION: No evidence of active cardiopulmonary disease. RPTAT: [facility] Physician Tre Date Time Electronically viewed and signed by Physician Tre on 09/04/2018 09:52 xB/ CC: BRIONNA LIU DO [id number] EKG: Rate/Rhythm: Normal Sinus Rhythm,NL intervals QRS, ST, QT: NORMAL [place], QRS, QT] Impression: NORMAL EKG Patient breathing treatment and feels much better now. We will treat her with Zithromax, prednisone, albuterol inhaler and Mucinex Patient feels much better at this time, and vital signs are normal, symptoms have improved. I did give strict instructions to return to the ED if symptoms continue or worsen, patient will otherwise follow-up with primary care physician. Patient understood instructions and agreed to plan. Disclaimer: Inadvertent spelling and grammatical errors are likely due to EHR/d ictation software use and do not reflect on the overall quality of patient care. Also, please note that the electronic time recorded on this note does not necessarily reflect the actual time of the patient encounter. Departure Diagnosis: Primary Impression: Asthma Asthma severity: mild Asthma persistence: unspecified Asthma complication type: uncomplicated Qualified Codes: J45.909 - Unspecified asthma, uncomplicated Additional Impression: Otitis media Otitis media type: suppurative Chronicity: acute Laterality: right Recurrence: non-recurrent Spontaneous tympanic membrane rupture: without spontaneous rupture Qualified Codes: H66.001 - Acute suppurative otitis media without spontaneous rupture of ear drum, right ear Condition: Stable Patient Instructions: Asthma, Otitis Media, Abx Tx (Adult) BRIONNA LIU DO Sep 04, 2018 11:01
[2018-09-04 11:20] VITALS: BP 120/88; PULSE 88; RESP 18
== END 2018-09-04 11:23 | disposition home or self-care (01) ==
LOC: E/R 08:45
DX: J45.901 Unspecified asthma with (acute) exacerbation (principal); H66.001 Acute suppurative otitis media without spontaneous rupture of ear drum, right ear; F17.210 Nicotine dependence, cigarettes, uncomplicated
CPT/HCPCS: 36415; 71045; 80048; 85025; 94664; 96372; J2930; Z7502; Z7610

== ENCOUNTER 2018-09-07 18:06 | Emergency (ER) | payer SELFPAY ==
[~2018-09-07] VITALS: Ht 162.6 cm; Wt 95.2 kg
[~2018-09-07 18:06] MED LIST changes: -ACET325T33 PO; +ACET500C5 PO; +AZIT250T PO; +BECL10.6 IH; +CLIN40GE TP; +ERGO500013 PO; -FERR325C PO; -FLUC150T PO; +GUAI-106 PO; -HYDR-4011 PO; +LORA10CA PO; -MAG355OR14 PO; -OMEP20CA16 PO; -PREN-93 PO; +RANI150T5 PO
[2018-09-07 18:32] VITALS: BP 170/93; PULSE 55; RESP 19; Ht 162.6 cm; Wt 95.2 kg
== END 2018-09-07 20:00 | disposition left against medical advice (07) ==
LOC: FTE 18:06
DX: Z53.21 Procedure and treatment not carried out due to patient leaving prior to being seen by health care provider (principal)

== ENCOUNTER 2018-09-09 12:35 | Emergency (ER) | payer OTHER ==
[~2018-09-09] VITALS: Ht 152.4 cm; Wt 93.6 kg
[2018-09-09 12:54] VITALS: Ht 152.4 cm; Wt 93.6 kg
[2018-09-09] MEDS ORDERED: FLUT9.9S NASAL (13:54)
[2018-09-09] MEDS ORDERED: CEFU500T45 PO (13:54)
[2018-09-09] MEDS ORDERED: ACET1TAB40 PO (13:55)
--- NOTE | 2018-09-09 14:02 | ERD ---
ER Documentation Chief Complaint Chief Complaint COUGH WITH POST NASAL DRIP X 1 WEEK HPI 28-year-old female presents with pain in her maxillary sinus area, nasal congestion and postnasal drip and left ear pain. She has pain with swallowing as well. She has no measured fevers. She has has mild cough. She has a hi story of wheezing and recurrent sinus pain and congestion. ROS All systems reviewed and are negative except as per history of present illness. Medications Home Meds Active Scripts Acetaminophen with Codeine (Acetaminophen-Cod #3 Tablet) 1 Each Tablet, 1 TAB PO Q6H PRN for PAIN, #7 TAB Prov:RONN COUCH MD 09/09/18 Cefuroxime Axetil* (Cefuroxime Axetil*) 500 Mg Tablet, 500 MG PO BID for 10 Days, #20 TAB Prov:RONN COUCH MD 09/09/18 Fluticasone Propionate (Flonase Allergy Relief) 9.9 Ml [place].susp, 1 SPRAY NASAL BID for 10 Days, #1 BOTTLE TO EACH NOSTRIL Prov:RONN COUCH MD 09/09/18 Guaifenesin/Pseudoephedrne HCl (Mucinex D ER 1,200-120 mg Tab) 1 Each Tab.er.12h, 1 EACH PO QPM PRN for congestion, #7 TAB Prov:BRIONNA LIU DO 09/04/18 Prednisone* (Prednisone*) 20 Mg Tab, 60 MG PO DAILY for 4 Days, TAB Prov:BRIONNA LIU. DO 09/04/18 Albuterol Sulfate* (Proair HFA*) 8.5 Gm Hfa.aer.ad, 2 PUFF INH Q4, #1 INHALER Prov:BRIONNA LIU DO 09/04/18 Azithromycin* (Zithromax*) 250 Mg Tablet, 250 MG PO .SvetlanaPACK DIRECTED, #6 TAB TAKE 500 MG (2 TABS) THE FIRST DAY THEN 250 MG (1 TAB) DAYS 2-5 Prov:ANASTACIO LIUSTHELEN Staley DO 09/04/18 Nystatin-Triamcinolone* (Nystatin-Triamcinolone* Cream) 15 Gm Cream.gm., 1 APPLIC TOP BID for 7 Days, #1 TUB Prov:DOBBS-MEDINA,ENOC MD 09/02/18 Triamcinolone Acetonide (Triamcinolone Acetonide) 0.5% - 15 Gm Oint..gm., 1 APPLIC TOP BID for 10 Days, #2 TUB Prov:ENOC ARMANDO MD 09/02/18 Prednisone* (Prednisone*) 20 Mg Tab, 60 MG PO DAILY for 5 Days, TAB Prov:ENOC ARMANDO MD 09/02/18 Albuterol Sulfate* (Proair HFA*) 8.5 Gm Hfa.aer.ad, 2 PUFF INH Q4H PRN for WHEEZING AND SOB, #1 INHALER Prov:ENOC ARMANDO MD 08/02/18 Reported Medications Ranitidine Hcl* (Ranitidine Hcl*) 150 Mg Tablet, 150 MG PO Q12, #60 TAB 09/04/18 Acetaminophen* (Tylophen*) 500 Mg Capsule, 500 MG PO Q6H PRN for PAIN LEVEL 4-6, TAB 09/04/18 Ergocalciferol (Vitamin D2) (VITAMIN D2) 50,000 Unit Capsule, 92444 UNIT PO weekly, CAP 09/04/18 Clindamycin Phosphate (Clindagel) 40 Ml Gel..ml., 40 ML TP BID 09/04/18 Beclomethasone Dipropionate (Qvar Redihaler (40 MCG)) 10.6 Gm Hfa.aeroba, 10.6 GM IH BID, INH 09/04/18 Loratadine* (Claritin*) 10 Mg Capsule, 10 MG PO DAILY, CAP 09/04/18 Discontinued Reported Medications Ferrous Sulfate (Iron) 325 Mg Capsule.er, 325 MG PO, CAP 12/05/16 Vit No.124/Iron/FA ( Vitamin Tablet) 1 Each Tablet, 1 EACH PO, TAB 12/05/16 Discontinued Scripts Fluconazole* (Diflucan*) 150 Mg Tablet, 150 MG PO ONCE, #1 TAB Prov:ENOC ARMANDO MD 09/02/18 Hydrocodone/Acetaminophen ([place] 5-325 Tablet) 1 Each Tablet, 1 TAB PO QHS PRN for PAIN, #7 TAB Prov:ENOC ARMANDO MD 09/02/18 Omeprazole* (Omeprazole*) 20 Mg Capsule.dr, 20 MG PO DAILY, #30 Prov:LISA MERAZ PA-C 03/04/17 Mag Hydrox/Al Hydrox/Simeth (Maalox Advanced Suspension) 355 Ml [place].susp, 2 TSP PO TID for PAIN, #24 OZ Prov:BONNIE FERNANDO MD 06/07/16 Acetaminophen* (Tylenol*) 325 Mg Tablet, 2 TAB PO Q8 PRN for PAIN, #30 TAB Prov:BONNIE FERNANDO MD 06/07/16 Allergies Allergies: Coded Allergies: amoxicillin (Verified Allergy, Unknown, 09/09/18) ibuprofen (Unverified Allergy, Unknown, 09/09/18) PMhx/Soc History of Surgery: Yes ( x2) Anesthesia Reaction: No Hx Neurological Disorder: No Hx Respiratory Disorders: Yes (Bronchitis, Asthma) Hx Cardiac Disorders: No Hx Psychiatric Problems: No Hx Miscellaneous Medical Probl: No Hx Alcohol Use: No Hx Substance Use: No Hx Tobacco Use: Yes Smoking Status: Never smoker FmHx Family History: No diabetes, No coronary disease, No other Physical Exam Vitals Vital Signs Date Temp Pulse Resp B/P (MAP) Pulse Ox O2 O2 Flow FiO2 Time Delivery Rate 09/09/18 98.8 82 19 146/75 100 Room Air 14:45 (98) 09/09/18 98.1 78 18 155/71 99 12:54 (99) Physical Exam Const: No acute distress Head: Atraumatic Eyes: Normal Conjunctiva ENT: Normal External Ears, Nose and Mouth. TMs normal. Tonsils 2+ without erythema or exudate. Uvula midline. Minimal maxillary tenderness. 3+ nasal congestion. Neck: Full range of motion. No meningismus. Resp: Clear to auscultation bilaterally. Clear lungs without wheezing, rales or retractions. Cardio: Regular rate and rhythm, no murmurs Abd: Soft, non tender, non distended. Normal bowel sounds Skin: No petechiae or rashes Back: No midline or flank tenderness Ext: No cyanosis, or edema Neur: Awake and alert Psych: Normal Mood and Affect Procedures/MDM EKG: Rate/Rhythm: Normal Sinus Rhythm. Rate equals 78. QRS, ST, T-waves: No changes consistent w/ acute ischemia Impression: No evidence of ischemia or arrhythmia. Impression-no acute findings of ischemia, arrhythmia on EKG. Presents with recurrent sinus type symptoms, postnasal drip and left upper chest wall pain which does not appear to be cardiac chest pain. Is no signs of hypoxemia, respiratory distress. Patient has multiple ER visits for URI symptoms and variety complaints. Recommending ENT persistent sinus type symptoms. Patient was advised she may need authorization from primary care doctor for specialist visit although she will be referred nonetheless. Patient will be treated medically with Ceftin, Flonase, Tylenol No. 3, primary care follow-up and return precautions. The patient was stable with no new complaints during the ER course. Clinically, there is no current evidence to suggest meningitis, sepsis, acute abdomen, pneumonia, stroke, acute coronary syndrome, pulmonary embolism, aortic dissection or any other emergent condition appearing to require further evaluation or hospitalization. Patient counseled regarding my diagnostic impression and care plan. Prior to discharge all questions answered. Pt agrees with treatment plan and understands strict return precautions. Pt is instructed to follow up with primary care provider within 24- 48 hours. Precautionary instructions provided including instructions to return to the ER if not improving or for any worsening or changing symptoms or concerns. . Departure Diagnosis: Primary Impression: Sinus pain Additional Impression: Cough Condition: Stable Patient Instructions: Sinusitis, Abx Tx Referrals: ADY ZHOU MD Additional Instructions: Recommend ear nose throat specialist for persistent or recurrent symptoms. May need authorization from primary doctor for specialist visit. RONN COUCH MD Sep 09, 2018 14:02
[2018-09-09 14:45] VITALS: BP 146/75; PULSE 82; RESP 19
== END 2018-09-09 14:47 | disposition home or self-care (01) ==
LOC: FTE 12:35
DX: J34.89 Other specified disorders of nose and nasal sinuses (principal); J45.909 Unspecified asthma, uncomplicated
CPT/HCPCS: 93005; Z7502

== ENCOUNTER 2018-09-28 12:17 | Emergency (ER) | payer SELFPAY ==
[~2018-09-28] VITALS: Ht 170.2 cm; Wt 96.8 kg
[~2018-09-28 12:17] MED LIST changes: +ACET1TAB40 PO; +CEFU500T45 PO; +FLUT9.9S NASAL
[2018-09-28 12:55] VITALS: BP 148/89; PULSE 98; RESP 19; Ht 170.2 cm; Wt 96.8 kg
== END 2018-09-28 15:30 | disposition left against medical advice (07) ==
LOC: FTE 12:17
DX: Z53.21 Procedure and treatment not carried out due to patient leaving prior to being seen by health care provider (principal)

== ENCOUNTER 2018-10-02 01:33 | Emergency (ER) | payer OTHER ==
[~2018-10-02] VITALS: Ht 170.2 cm; Wt 96.3 kg
[2018-10-02 02:06] VITALS: BP 141/98; PULSE 70; RESP 16; Ht 170.2 cm; Wt 96.3 kg
== END 2018-10-02 05:03 | disposition left against medical advice (07) ==
LOC: FTE 01:33
DX: Z53.21 Procedure and treatment not carried out due to patient leaving prior to being seen by health care provider (principal)

== ENCOUNTER 2018-10-10 10:37 | Emergency (ER) | payer OTHER ==
[~2018-10-10] VITALS: Wt 100.0 kg
[2018-10-10 10:39] VITALS: BP 156/78; PULSE 71; RESP 18
[2018-10-10] MEDS ORDERED: PSEU-79 PO (11:09)
[2018-10-10] MEDS ORDERED: NPH10OT BOTH EARS (11:09)
[2018-10-10] MEDS ORDERED: AZIT250T PO (11:09)
--- NOTE | 2018-10-10 13:24 | ERD ---
ER Documentation Chief Complaint Chief Complaint EAR PAIN, "SINUS INFECTION" ALSO WANTS PREG TEST HPI 28-year-old female presenting with ear pain and sinus congestion. Patient is also requesting test. Patient states that she has been sick intermittently over the last 2 years. She has a pending visit with the ENT physician. She denies any fevers. Has not taken medications for symptoms. Denies medical problems. Allergic to amoxicillin and ibuprofen. Surgical history . Social history smokes 3 cigarettes a day. ROS All systems reviewed and are negative except as per history of present illness. Medications Home Meds Active Scripts Azithromycin* (Zithromax*) 250 Mg Tablet, 250 MG PO .ZPACK DIRECTED, #6 TAB TAKE 500 MG (2 TABS) THE FIRST DAY THEN 250 MG (1 TAB) DAYS 2-5 Prov:MARIBELL AVILES PA-C 10/10/18 Neomycin/Polymyxin/Hydrocort* (Cortisporin* Otic) 10 Ml Susp, 4 DROP BOTH EARS QID for 7 Days, EA Prov:MARIBELL AVILES PA-C 10/10/18 Pseudoephedrine Hcl* (Suphedrin*) 30 Mg Tablet, 30 MG PO Q6 PRN for CONGESTION, #30 TAB Prov:MARIBELL AVILES PA-C 10/10/18 Acetaminophen with Codeine (Acetaminophen-Cod #3 Tablet) 1 Each Tablet, 1 TAB PO Q6H PRN for PAIN, #7 TAB Prov:RONN COUCH MD 09/09/18 Cefuroxime Axetil* (Cefuroxime Axetil*) 500 Mg Tablet, 500 MG PO BID for 10 Days, #20 TAB Prov:RONN COUCH MD 09/09/18 Fluticasone Propionate (Flonase Allergy Relief) 9.9 Ml [place].susp, 1 SPRAY NASAL BID for 10 Days, #1 BOTTLE TO EACH NOSTRIL Prov:RONN COUCH MD 09/09/18 Guaifenesin/Pseudoephedrne HCl (Mucinex D ER 1,200-120 mg Tab) 1 Each Tab.er.12h, 1 EACH PO QPM PRN for congestion, #7 TAB Prov:BRIONNA LIU DO 09/04/18 Prednisone* (Prednisone*) 20 Mg Tab, 60 MG PO DAILY for 4 Days, TAB Prov:BRIONNA LIU. DO 09/04/18 Albuterol Sulfate* (Proair HFA*) 8.5 Gm Hfa.aer.ad, 2 PUFF INH Q4, #1 INHALER Prov:FÉLIXJEANBRIONNA. DO 09/04/18 Azithromycin* (Zithromax*) 250 Mg Tablet, 250 MG PO .APRIL DIRECTED, #6 TAB TAKE 500 MG (2 TABS) THE FIRST DAY THEN 250 MG (1 TAB) DAYS 2-5 Prov:BRIONNA LIU. DO 09/04/18 Nystatin-Triamcinolone* (Nystatin-Triamcinolone* Cream) 15 Gm Cream.gm., 1 APPLIC TOP BID for 7 Days, #1 TUB Prov:ENOC ARMANDO MD 09/02/18 Triamcinolone Acetonide (Triamcinolone Acetonide) 0.5% - 15 Gm Oint..gm., 1 APPLIC TOP BID for 10 Days, #2 TUB Prov:ENOC ARMANDO MD 09/02/18 Prednisone* (Prednisone*) 20 Mg Tab, 60 MG PO DAILY for 5 Days, TAB Prov:ENOC ARMANDO MD 09/02/18 Albuterol Sulfate* (Proair HFA*) 8.5 Gm Hfa.aer.ad, 2 PUFF INH Q4H PRN for WHEEZING AND SOB, #1 INHALER Prov:ENOC ARMANDO MD 08/02/18 Reported Medications Ranitidine Hcl* (Ranitidine Hcl*) 150 Mg Tablet, 150 MG PO Q12, #60 TAB 09/04/18 Acetaminophen* (Tylophen*) 500 Mg Capsule, 500 MG PO Q6H PRN for PAIN LEVEL 4-6, TAB 09/04/18 Ergocalciferol (Vitamin D2) (VITAMIN D2) 50,000 Unit Capsule, 53052 UNIT PO weekly, CAP 09/04/18 Clindamycin Phosphate (Clindagel) 40 Ml Gel..ml., 40 ML TP BID 09/04/18 Beclomethasone Dipropionate (Qvar Redihaler (40 MCG)) 10.6 Gm Hfa.aeroba, 10.6 GM IH BID, INH 09/04/18 Loratadine* (Claritin*) 10 Mg Capsule, 10 MG PO DAILY, CAP 09/04/18 Allergies Allergies: Coded Allergies: amoxicillin (Verified Allergy, Unknown, 09/09/18) ibuprofen (Unverified Allergy, Unknown, 09/09/18) PMhx/Soc History of Surgery: No Anesthesia Reaction: No Hx Neurological Disorder: No Hx Respiratory Disorders: No Hx Cardiac Disorders: No Hx Psychiatric Problems: No Hx Miscellaneous Medical Probl: No Hx Alcohol Use: No Hx Substance Use: No Hx Tobacco Use: No Smoking Status: Never smoker FmHx Family History: No diabetes, No coronary disease, No other Physical Exam Vitals Vital Signs Date Temp Pulse Resp B/P (MAP) Pulse Ox O2 O2 Flow FiO2 Time Delivery Rate 10/10/18 97.4 71 18 156/78 99 10:39 (104) Physical Exam GENERAL: The patient is well-appearing, well-nourished, in no acute distress HEENT: Atraumatic. Conjunctivae are pink. Pupils equal, round, and reactive to light. There is no scleral icterus. Tympanic membranes clear bilaterally. Oropharynx clear. NECK: C-spine is soft and supple. There is no meningismus. There is no cervic al lymphadenopathy. CHEST: Clear to auscultation bilaterally. There are no rales, wheezes or rhonchi. HEART: Regular rate and rhythm. No murmurs, clicks, rubs or gallops. Results 24 hrs Laboratory Tests Test 10/10/18 11:27 10/10/18 11:29 Bedside Urine pH (LAB) 6.5 Bedside Urine Protein (LAB) Negative Bedside Urine Glucose (UA) Negative Bedside Urine Ketones (LAB) Negative Bedside Urine Blood Negative Bedside Urine Nitrite (LAB) Negative Bedside Urine Leukocyte Esterase (L Negative POC Beta HCG, Qualitative POSITIVE Procedures/MDM ER course: test positive. MDM: 28-year-old female presenting with sinus congestion. Patient had Sudafed prescription prior to discharge. She requested test after prescriptions were printed and test became positive. Patient was called and recommended not to take Sudafed as she is . Patient will be discharged with antibiotics given she had intermittent symptoms for the last year. Patient is recommended to follow-up with primary care. All questions answered at discharge Departure Diagnosis: Primary Impression: Sinus congestion Additional Impression: Right ear pain Condition: Stable Patient Instructions: Common Middle Ear Problems Additional Instructions: FOLLOW UP WITH YOUR PRIMARY CARE PHYSICIAN TOMORROW.Return to this facility if you are not improving as expected. MARIBELL AVILES PA-C Oct 10, 2018 13:24
== END 2018-10-10 12:06 | disposition home or self-care (01) ==
LOC: FTE 10:37
DX: R09.81 Nasal congestion (principal); Z32.01 Encounter for pregnancy test, result positive
CPT/HCPCS: 81003; 81025; Z7502; 99283

== ENCOUNTER 2018-11-23 18:58 | Emergency (ER) | payer OTHER ==
[~2018-11-23] VITALS: Ht 170.2 cm; Wt 96.2 kg
[~2018-11-23 18:58] MED LIST changes: +NPH10OT BOTH EARS; +PSEU-79 PO
[2018-11-23 19:14] VITALS: RESP 19; Ht 170.2 cm; Wt 96.2 kg
[2018-11-23] MEDS ORDERED: DIPHENHYDRAMINE 50 MG CAP PO ONE (22:30)
[2018-11-23] MEDS ORDERED: DIPH25CA6 PO (22:52)
[2018-11-23] MEDS ORDERED: HDRP454O TOP (22:52)
[2018-11-23] MEDS ORDERED: CETI10CA PO (22:52)
[2018-11-23] MEDS ORDERED: MED4DP PO (22:53)
--- NOTE | 2018-11-23 22:54 | ERD ---
ER Documentation Chief Complaint Chief Complaint C/O RASH AND PAIN TO BACK OF LT EAR SINCE THIS AM ROS All systems reviewed and are negative except as per history of present illness. Medications Home Meds Active Scripts Methylprednisolone* (Medrol* DOSE PACK) 4 Mg/Dose-Pack Tab.ds.pk, 4 MG PO . DIRECTED for rash/itchiness, #1 PACKET Prov:CLEMENTFRANCISCO 11/23/18 Hydrophilic Base* (Aquaphor*) 454 Gm-Topical Oint, 1 APPLIC TOP BID PRN for dryness, #1 JAR Prov:CLEMENTFRANCISCO 11/23/18 Diphenhydramine Hcl (Benadryl) 25 Mg Cap, 25 MG PO Q6H PRN for PAIN, #30 CAP Prov:URBANOFRANCISCO 11/23/18 Cetirizine Hcl* (Zyrtec*) 10 Mg Capsule, 10 MG PO DAILY PRN for ITCHING, #30 TAB.CHEW Prov:URBANOFRANCISCO 11/23/18 Azithromycin* (Zithromax*) 250 Mg Tablet, 250 MG PO .ZPACK DIRECTED, #6 TAB TAKE 500 MG (2 TABS) THE FIRST DAY THEN 250 MG (1 TAB) DAYS 2-5 Prov:MARIBELL AVILES PA-C 10/10/18 Neomycin/Polymyxin/Hydrocort* (Cortisporin* Otic) 10 Ml Susp, 4 DROP BOTH EARS QID for 7 Days, EA Prov:MARIBELL AVILES PA-C 10/10/18 Pseudoephedrine Hcl* (Suphedrin*) 30 Mg Tablet, 30 MG PO Q6 PRN for CONGESTION, #30 TAB Prov:MARIBELL AVILES PA-C 10/10/18 Acetaminophen with Codeine (Acetaminophen-Cod #3 Tablet) 1 Each Tablet, 1 TAB PO Q6H PRN for PAIN, #7 TAB Prov:RONN COUCH MD 09/09/18 Cefuroxime Axetil* (Cefuroxime Axetil*) 500 Mg Tablet, 500 MG PO BID for 10 Days, #20 TAB Prov:RONN COUCH MD 09/09/18 Fluticasone Propionate (Flonase Allergy Relief) 9.9 Ml [place].susp, 1 SPRAY NASAL BID for 10 Days, #1 BOTTLE TO EACH NOSTRIL Prov:RONN COUCH MD 09/09/18 Guaifenesin/Pseudoephedrne HCl (Mucinex D ER 1,200-120 mg Tab) 1 Each Tab.er.12h, 1 EACH PO QPM PRN for congestion, #7 TAB Prov:BRIONNA LIU DO 09/04/18 Prednisone* (Prednisone*) 20 Mg Tab, 60 MG PO DAILY for 4 Days, TAB Prov:BRIONNA LIU DO 09/04/18 Albuterol Sulfate* (Proair HFA*) 8.5 Gm Hfa.aer.ad, 2 PUFF INH Q4, #1 INHALER Prov:BRIONNA LIU DO 09/04/18 Azithromycin* (Zithromax*) 250 Mg Tablet, 250 MG PO .ZPACK DIRECTED, #6 TAB TAKE 500 MG (2 TABS) THE FIRST DAY THEN 250 MG (1 TAB) DAYS 2-5 Prov:BRIONNA LIU DO 09/04/18 Nystatin-Triamcinolone* (Nystatin-Triamcinolone* Cream) 15 Gm Cream.gm., 1 APPLIC TOP BID for 7 Days, #1 TUB Prov:ENOC ARMANDO MD 09/02/18 Triamcinolone Acetonide (Triamcinolone Acetonide) 0.5% - 15 Gm Oint..gm., 1 APPLIC TOP BID for 10 Days, #2 TUB Prov:ENOC ARMANDO MD 09/02/18 Prednisone* (Prednisone*) 20 Mg Tab, 60 MG PO DAILY for 5 Days, TAB Prov:ENOC ARMANDO MD 09/02/18 Albuterol Sulfate* (Proair HFA*) 8.5 Gm Hfa.aer.ad, 2 PUFF INH Q4H PRN for WHEEZING AND SOB, #1 INHALER Prov:ENOC ARMANDO MD 08/02/18 Reported Medications Ranitidine Hcl* (Ranitidine Hcl*) 150 Mg Tablet, 150 MG PO Q12, #60 TAB 09/04/18 Acetaminophen* (Tylophen*) 500 Mg Capsule, 500 MG PO Q6H PRN for PAIN LEVEL 4-6, TAB 09/04/18 Ergocalciferol (Vitamin D2) (VITAMIN D2) 50,000 Unit Capsule, 04786 UNIT PO weekly, CAP 09/04/18 Clindamycin Phosphate (Clindagel) 40 Ml Gel..ml., 40 ML TP BID 09/04/18 Beclomethasone Dipropionate (Qvar Redihaler (40 MCG)) 10.6 Gm Hfa.aeroba, 10.6 GM IH BID, INH 09/04/18 Loratadine* (Claritin*) 10 Mg Capsule, 10 MG PO DAILY, CAP 09/04/18 Allergies Allergies: Coded Allergies: amoxicillin (Verified Allergy, Unknown, 11/23/18) ibuprofen (Unverified Allergy, Unknown, 11/23/18) PMhx/Soc History of Surgery: No Anesthesia Reaction: No Hx Neurological Disorder: No Hx Respiratory Disorders: No Hx Cardiac Disorders: No Hx Psychiatric Problems: No Hx Miscellaneous Medical Probl: No Hx Alcohol Use: No Hx Substance Use: No Hx Tobacco Use: No Smoking Status: Never smoker Physical Exam Vitals Vital Signs Date Temp Pulse Resp B/P (MAP) Pulse Ox O2 O2 Flow FiO2 Time Delivery Rate 11/23/18 99.4 76 19 141/87 100 19:14 (105) Physical Exam Const: No acute distress Head: Atraumatic Eyes: Normal Conjunctiva ENT: Normal External Ears, Nose and Mouth. Neck: Full range of motion. No meningismus. Resp: Clear to auscultation bilaterally Cardio: Regular rate and rhythm, no murmurs Abd: Soft, non tender, non distended. Normal bowel sounds Skin: No petechiae or rashes Back: No midline or flank tenderness Ext: No cyanosis, or edema Neur: Awake and alert Psych: Normal Mood and Affect Results 24 hrs Current Medications Medications Dose Sig/Savage Start Time Status Last (Trade) Ordered Route PRN Stop Time Admin Dose Reason Admin 50 mg ONCE ONCE 11/23/18 DC 11/23/18 Diphenhydrami PO 22:30 11/23/18 22:17 ne HCl 22:31 (Benadryl) Departure Diagnosis: Primary Impression: Rash Condition: Fair Patient Instructions: Self-Care for Skin Rashes Additional Instructions: Call your primary care doctor TOMORROW for an appointment during the next 1-2 days.See the doctor sooner or return here if your condition worsens before your appointment time. FRANCISCO CLEMENT DO November 23, 2018 22:54
[2018-11-23 23:17] VITALS: BP 144/93; PULSE 56
== END 2018-11-23 23:18 | disposition home or self-care (01) ==
LOC: FTE 18:58
DX: R21 Rash and other nonspecific skin eruption (principal)
CPT/HCPCS: Z7502; Z7610; 99283